=== PATIENT | female | born 1950 | race Caucasian/White ===

== ENCOUNTER 2022-07-02 16:15 | Observation (INO) ==
[2022-07-02 16:34] LABS: Basophils % 0.6 % (0.0-0.8); Eosinophils # 0.2 10*3/uL (0.0-0.87); Hematocrit 36.4 VOL% (35.7-47.0); Hemoglobin 11.7 GM/DL (12.0-16.0); Immature Granulocytes % 0.3 %; Immature Granulocytes Absolute 0.02 #; Lymphocytes # 1.6 10*3/uL (1.4-4.0); Lymphocytes % 24.7 % (21.3-54.2); Mean Corpuscular HGB Conc 32.1 GM/DL (32-36); Mean Corpuscular Volume 91.7 FL (87-102); Monocytes # 0.4 10*3/uL (0.11-0.8); Monocytes % 6.4 % (1.7-12.7); Platelet Count 173 T/CUMM (130-400); Red Blood Count 3.97 MC/CUMM (3.8-5.5); Red Cell Distribution Width 13.5 % (9.3-17.3); White Blood Count 6.57 T/CUMM (4-12)
[2022-07-02 16:54] LABS: Albumin 3.6 G/DL (3.4-5.0); Bilirubin,Total 0.4 MG/DL (0.20-1.00); Calcium 8.8 MG/DL (8.5-10.1); Osmolality,Calculated 280.4 MOS/KG (273-304); Potassium 3.8 MMOL/L (3.5-5.1); Total Protein 6.6 G/DL (6.4-8.2)
[2022-07-02] MEDS ORDERED: ASPIRIN CHEW 81 MG TABLET PO STA (17:45)
[2022-07-02] MEDS ORDERED: ACETAMINOPHEN 325 MG TABLET PO PRN (18:52)
[2022-07-02] MEDS ORDERED: ONDANSETRON 4 MG/2 ML VIAL IV PRN (18:52)
[2022-07-02] MEDS ORDERED: NITROGLYCERIN SL 0.4 MG TABLET SL PRN (18:53)
[2022-07-02] MEDS ORDERED: ENOXAPARIN 40 MG/0.4 ML SYRINGE SUBCUT SCH (20:00)
[2022-07-02] MEDS: INSULIN REGULAR 100 UNIT/ML SUBCUT SCH (20:45)
[2022-07-02] MEDS: MAGNESIUM OXIDE 400 MG TABLET PO SCH (21:11)
[2022-07-02] MEDS: carvediloL 12.5 MG TABLET PO SCH (21:11)
[2022-07-02] MEDS: ZALEPLON 5 MG CAPSULE PO PRN ×2 (21:11→23:26)
[2022-07-03 01:45] LABS: Risk Ratio 2.71; Thyroid Stimulating Hormone 3.35 uIU/ml (0.358-3.74); VLDL Cholesterol 36.4 MG/DL
[2022-07-03 08:10] LABS: Basophils % 0.5 % (0.0-0.8); Eosinophils # 0.1 10*3/uL (0.0-0.87); Eosinophils % 2.3 % (0.00-10.9); Hematocrit 36.9 VOL% (35.7-47.0); Hemoglobin 12.1 GM/DL (12.0-16.0); Immature Granulocytes % 0.3 %; Immature Granulocytes Absolute 0.02 #; Lymphocytes # 1.2 10*3/uL (1.4-4.0); Lymphocytes % 20.6 % (21.3-54.2); Mean Corpuscular HGB Conc 32.8 GM/DL (32-36); Mean Corpuscular Volume 90.7 FL (87-102); Mean Platelet Volume 9.3 FL (9.6-12.0); Monocytes # 0.4 10*3/uL (0.11-0.8); Monocytes % 6.8 % (1.7-12.7); Neutrophils % 69.5 % (38.7-73.9); Platelet Count 161 T/CUMM (130-400); Red Blood Count 4.07 MC/CUMM (3.8-5.5); Red Cell Distribution Width 13.7 % (9.3-17.3); White Blood Count 6.01 T/CUMM (4-12)
[2022-07-03] MEDS ORDERED: EZETIMIBE 10 MG TABLET PO SCH (09:00)
[2022-07-03] MEDS ORDERED: DULoxetine 30 MG CAPSULE PO SCH (09:00)
[2022-07-03] MEDS ORDERED: MONTELUKAST 10 MG TABLET PO SCH (09:00)
[2022-07-03] MEDS ORDERED: CLOPIDOGREL 75 MG TABLET PO SCH (09:00)
[2022-07-03] MEDS ORDERED: ASPIRIN EC 81 MG TABLET PO SCH (09:00)
[2022-07-03] MEDS ORDERED: PANTOPRAZOLE 40 MG TABLET PO SCH (09:00)
[2022-07-03] MEDS: INSULIN REGULAR 100 UNIT/ML SUBCUT SCH ×3 (10:01→17:00)
[2022-07-03] MEDS ORDERED: CYCLOBENZAPRINE 10 MG TABLET PO PRN (10:01)
[2022-07-03] MEDS ORDERED: KETOROLAC 30 MG/1 ML VIAL IV ONE (10:01)
[2022-07-03] MEDS: carvediloL 12.5 MG TABLET PO SCH (10:04)
[2022-07-03] MEDS: MAGNESIUM OXIDE 400 MG TABLET PO SCH (10:04)
[2022-07-03 10:05] LABS: Calcium 9.1 MG/DL (8.5-10.1); Osmolality,Calculated 281.4 MOS/KG (273-304); Potassium 4.2 MMOL/L (3.5-5.1)
[2022-07-03] MEDS ORDERED: MAGNESIUM SULF RIDER 2 GM/50 ML PREMIX IV ONE (12:32)
[2022-07-03 15:37] VITALS: BP 113/56
[2022-07-03] MEDS ORDERED: SIMVASTATIN 40 MG TABLET PO SCH (21:00)
== END 2022-07-03 17:20 | disposition home or self-care (01) ==
LOC: N.ED 16:15 → N.EDINP 16:15 → N.TELES 19:58
PROVIDERS: ADMIT Internal Medicine; ATTEND Internal Medicine